=== PATIENT | female | born 1940 | race African-American/Black ===

== ENCOUNTER 2020-12-01 11:42 | Inpatient (IN) ==
[2020-12-01] MEDS ORDERED: NALOXONE 0.4 MG/ML VIAL ONE (12:04)
[2020-12-01] MEDS ORDERED: NALOXONE 0.4 MG/ML VIAL IV STA (12:04)
[2020-12-01 12:12] LABS: Basophils % 0.4 % (0.0-0.8); Eosinophils % 0.6 % (0.00-10.9); Hematocrit 40.4 VOL% (35.7-47.0); Hemoglobin 12.9 GM/DL (12.0-16.0); Immature Granulocytes % 0.4 %; Immature Granulocytes Absolute 0.03 #; Lymphocytes # 1.7 10*3/uL (1.4-4.0); Mean Corpuscular HGB Conc 31.9 GM/DL (32-36); Mean Corpuscular Volume 95.7 FL (87-102); Mean Platelet Volume 11.7 FL (9.6-12.0); Monocytes % 17.9 % (1.7-12.7); Neutrophils % 56.7 % (38.7-73.9); Platelet Count 113 T/CUMM (130-400); Red Blood Count 4.22 MC/CUMM (3.8-5.5); Red Cell Distribution Width 13.4 % (9.3-17.3); White Blood Count 7.3 T/CUMM (4-12)
[2020-12-01 12:35] LABS: Bacteria,Urine Occasional /HPF (Few); Bilirubin,Urine Negative (Negative); Blood, Urine Negative (Negative); Glucose,Urine (UA) Negative (Negative); Ketones,Urine Negative (Negative); Mucus,Urine Occasional /LPF (Occasional); Nitrite,Urine Negative (Negative); Protein,Urine 30 MG/DL; RBC,Urine 2 /HPF (0-4); Squamous Epithelial Cell,Urine Occasional /HPF (0-10); Urine Appearance CLEAR (Clear); Urine Color Yellow (Yellow); Urine Specific Gravity 1.011 (1.001-1.035); WBC,Urine <1 /HPF (0-6)
[2020-12-01 12:36] LABS: Eosinophils 2 % (0-10); Lymphocytes 17 % (20-55); Segmented Neutrophils 67 % (50-85); Total Cells Counted 100
[2020-12-01 12:37] LABS: Platelet Estimate Adequate
[2020-12-01 12:42] LABS: Barbiturates Screen,Urine Negative (Negative); Benzodiazepines Screen,Urine Negative (Negative); Cannabinoid Screen,Urine Negative (Negative); Opiate Screen,Urine Negative (Negative); Phencyclidine Screen,Urine Negative (Negative)
[2020-12-01 12:45] LABS: Alanine Aminotransferase 20 U/L (13-56); Alkaline Phosphatase 96 U/L (45-117); Aspartate Amino Transferase 30 U/L (0-37); Blood Urea Nitrogen 20 MG/DL (7-18); Calcium 10.4 MG/DL (8.5-10.1); Estimated Glom Filtration Rate 51 ML/MIN; Glucose 119 MG/DL (74-106); Total Protein 7.7 G/DL (6.4-8.3)
[2020-12-01] MEDS ORDERED: DEXTROSE 50% 25 GM/50 ML VIAL IV PRN (14:32)
[2020-12-01] MEDS ORDERED: ONDANSETRON 4 MG/2 ML VIAL IV PRN (14:32)
[2020-12-01] MEDS ORDERED: ACETAMINOPHEN 325 MG TABLET PO PRN (14:32)
[2020-12-01] MEDS ORDERED: GLUCAGON 1 MG VIAL IM PRN (14:32)
[2020-12-01 14:55] LABS: Ferritin 342.9 ng/ml (8-252)
[2020-12-01] MEDS ORDERED: hydrALAZINE 20 MG/1 ML VIAL IV PRN (16:03)
[2020-12-01] MEDS: HEPARIN 5,000 UNIT/1 ML VIAL SUBCUT SCH (19:03)
[2020-12-01] MEDS: DEXAMETHASONE 4 MG/1 ML VIAL IV SCH (19:06)
[2020-12-01] MEDS: hydrALAZINE 25 MG TABLET PO SCH ×2 (19:06→21:54)
[2020-12-01] MEDS: MEMANTINE 10 MG TABLET PO SCH (21:53)
[2020-12-01] MEDS: carvediloL 25 MG TABLET PO SCH (21:54)
[2020-12-01] MEDS: ATORVASTATIN 10 MG TABLET PO SCH (21:54)
[2020-12-01] MEDS: DONEPEZIL 10 MG TABLET PO SCH (21:54)
[2020-12-02 04:54] LABS: Basophils % 0.2 % (0.0-0.8); Hemoglobin 13.1 GM/DL (12.0-16.0); Immature Granulocytes % 0.4 %; Immature Granulocytes Absolute 0.02 #; Lymphocytes # 1.1 10*3/uL (1.4-4.0); Lymphocytes % 22.4 % (21.3-54.2); Mean Corpuscular HGB Conc 31.2 GM/DL (32-36); Mean Corpuscular Volume 96.6 FL (87-102); Mean Platelet Volume 11.3 FL (9.6-12.0); Monocytes % 4.8 % (1.7-12.7); Neutrophils % 72.2 % (38.7-73.9); Platelet Count 113 T/CUMM (130-400); Red Blood Count 4.35 MC/CUMM (3.8-5.5); Red Cell Distribution Width 13.2 % (9.3-17.3); White Blood Count 4.8 T/CUMM (4-12)
[2020-12-02 05:32] LABS: Alanine Aminotransferase 21 U/L (13-56); Albumin 3.4 G/DL (3.4-5.0); Alkaline Phosphatase 89 U/L (45-117); Aspartate Amino Transferase 28 U/L (0-37); Bilirubin,Total < 0.39 MG/DL (0.2-1.0); Blood Urea Nitrogen 19 MG/DL (7-18); Calcium 10.4 MG/DL (8.5-10.1); Estimated Glom Filtration Rate 60 ML/MIN; Ferritin 172.8 ng/ml (8-252); Glucose 154 MG/DL (74-106); Osmolality,Calculated 287.1 MOS/KG (273-304); Thyroid Stimulating Hormone 0.435 uIU/ml (0.358-3.74); Total Protein 7.4 G/DL (6.4-8.3)
[2020-12-02] MEDS: HEPARIN 5,000 UNIT/1 ML VIAL SUBCUT SCH ×3 (06:42→22:13)
[2020-12-02] MEDS: INSULIN LISPRO 100 UNIT/ML SUBCUT SCH ×6 (07:45→20:43)
[2020-12-02] MEDS: PANTOPRAZOLE 40 MG TABLET PO SCH (10:19)
[2020-12-02] MEDS: CINACALCET 30 MG TABLET PO SCH (10:19)
[2020-12-02] MEDS: ASPIRIN EC 81 MG TABLET PO SCH (10:19)
[2020-12-02] MEDS: MEMANTINE 10 MG TABLET PO SCH ×2 (10:19→20:43)
[2020-12-02] MEDS: OXYBUTYNIN 5 MG TABLET PO SCH (10:19)
[2020-12-02] MEDS: DEXAMETHASONE 4 MG/1 ML VIAL IV SCH (10:19)
[2020-12-02] MEDS: TORSEMIDE 20 MG TABLET PO SCH (10:19)
[2020-12-02] MEDS: hydrALAZINE 25 MG TABLET PO SCH ×3 (10:24→20:43)
[2020-12-02] MEDS: carvediloL 25 MG TABLET PO SCH ×2 (10:24→20:43)
[2020-12-02] MEDS: LOSARTAN 50 MG TABLET PO SCH (10:25)
[2020-12-02] MEDS: amLODIPine 5 MG TABLET PO SCH (10:26)
[2020-12-02] MEDS: DONEPEZIL 10 MG TABLET PO SCH (20:43)
[2020-12-02] MEDS: ATORVASTATIN 10 MG TABLET PO SCH (20:43)
[2020-12-03 05:47] LABS: Alanine Aminotransferase 19 U/L (13-56); Albumin 3.1 G/DL (3.4-5.0); Alkaline Phosphatase 76 U/L (45-117); Aspartate Amino Transferase 24 U/L (0-37); Bilirubin,Total < 0.39 MG/DL (0.2-1.0); Blood Urea Nitrogen 35 MG/DL (7-18); Calcium 10.2 MG/DL (8.5-10.1); Estimated Glom Filtration Rate 47 ML/MIN; Glucose 152 MG/DL (74-106); Osmolality,Calculated 293.1 MOS/KG (273-304); Total Protein 6.9 G/DL (6.4-8.3)
[2020-12-03 05:58] LABS: Ferritin 209.2 ng/ml (8-252)
[2020-12-03 06:04] LABS: Hematocrit 39.5 VOL% (35.7-47.0); Hemoglobin 12.8 GM/DL (12.0-16.0); Immature Granulocytes % 0.3 %; Immature Granulocytes Absolute 0.02 #; Lymphocytes # 1.4 10*3/uL (1.4-4.0); Lymphocytes % 23.2 % (21.3-54.2); Mean Corpuscular HGB Conc 32.4 GM/DL (32-36); Mean Corpuscular Volume 93.4 FL (87-102); Monocytes % 14.4 % (1.7-12.7); Neutrophils % 62.1 % (38.7-73.9); Platelet Count 106 T/CUMM (130-400); Red Blood Count 4.23 MC/CUMM (3.8-5.5); White Blood Count 5.9 T/CUMM (4-12)
[2020-12-03] MEDS: HEPARIN 5,000 UNIT/1 ML VIAL SUBCUT SCH ×3 (06:37→21:23)
[2020-12-03] MEDS ORDERED: GLUCAGON 1 MG VIAL IM PRN (07:44)
[2020-12-03] MEDS ORDERED: DEXTROSE 50% 25 GM/50 ML VIAL IV PRN (07:44)
[2020-12-03] MEDS: TORSEMIDE 20 MG TABLET PO SCH (08:11)
[2020-12-03] MEDS: LOSARTAN 50 MG TABLET PO SCH (08:11)
[2020-12-03] MEDS: DEXAMETHASONE 4 MG/1 ML VIAL IV SCH (08:11)
[2020-12-03] MEDS: hydrALAZINE 25 MG TABLET PO SCH ×3 (08:11→21:17)
[2020-12-03] MEDS: carvediloL 25 MG TABLET PO SCH ×2 (08:12→21:17)
[2020-12-03] MEDS: ASPIRIN EC 81 MG TABLET PO SCH (08:12)
[2020-12-03] MEDS: OXYBUTYNIN 5 MG TABLET PO SCH (08:12)
[2020-12-03] MEDS: PANTOPRAZOLE 40 MG TABLET PO SCH (08:12)
[2020-12-03] MEDS: CINACALCET 30 MG TABLET PO SCH (08:12)
[2020-12-03] MEDS: MEMANTINE 10 MG TABLET PO SCH ×2 (08:12→21:17)
[2020-12-03] MEDS: amLODIPine 5 MG TABLET PO SCH (08:12)
[2020-12-03] MEDS: INSULIN LISPRO 100 UNIT/ML SUBCUT SCH ×4 (08:12→21:17)
[2020-12-03] MEDS: CEFEPIME 1,000 MG in SODIUM CHLORIDE 0.9% 100 ML IV SCH ×2 (14:16→21:16)
[2020-12-03] MEDS: DONEPEZIL 10 MG TABLET PO SCH (21:17)
[2020-12-03] MEDS: ATORVASTATIN 10 MG TABLET PO SCH (21:17)
[2020-12-04] MEDS: CEFEPIME 1,000 MG in SODIUM CHLORIDE 0.9% 100 ML IV SCH ×3 (05:08→21:20)
[2020-12-04] MEDS: HEPARIN 5,000 UNIT/1 ML VIAL SUBCUT SCH ×3 (05:08→21:01)
[2020-12-04 07:06] LABS: Basophils % 0.1 % (0.0-0.8); Hematocrit 42.2 VOL% (35.7-47.0); Hemoglobin 13.2 GM/DL (12.0-16.0); Immature Granulocytes % 0.3 %; Immature Granulocytes Absolute 0.02 #; Lymphocytes # 1.1 10*3/uL (1.4-4.0); Lymphocytes % 14.9 % (21.3-54.2); Mean Corpuscular HGB Conc 31.3 GM/DL (32-36); Mean Corpuscular Volume 96.6 FL (87-102); Monocytes % 9.4 % (1.7-12.7); Neutrophils % 75.3 % (38.7-73.9); Platelet Count 101 T/CUMM (130-400); Red Blood Count 4.37 MC/CUMM (3.8-5.5); Red Cell Distribution Width 13.1 % (9.3-17.3); White Blood Count 7.5 T/CUMM (4-12)
[2020-12-04 07:28] LABS: Calcium 10.4 MG/DL (8.5-10.1); Osmolality,Calculated 295.8 MOS/KG (273-304)
[2020-12-04] MEDS: INSULIN LISPRO 100 UNIT/ML SUBCUT SCH ×4 (08:02→20:59)
[2020-12-04] MEDS: DEXAMETHASONE 4 MG/1 ML VIAL IV SCH (08:56)
[2020-12-04] MEDS: OXYBUTYNIN 5 MG TABLET PO SCH (08:56)
[2020-12-04] MEDS: hydrALAZINE 25 MG TABLET PO SCH ×3 (08:56→20:58)
[2020-12-04] MEDS: PANTOPRAZOLE 40 MG TABLET PO SCH (08:56)
[2020-12-04] MEDS: carvediloL 25 MG TABLET PO SCH ×2 (08:56→20:58)
[2020-12-04] MEDS: amLODIPine 5 MG TABLET PO SCH (08:56)
[2020-12-04] MEDS: MEMANTINE 10 MG TABLET PO SCH ×2 (08:56→20:58)
[2020-12-04] MEDS: TORSEMIDE 20 MG TABLET PO SCH (08:56)
[2020-12-04] MEDS: ASPIRIN EC 81 MG TABLET PO SCH (08:56)
[2020-12-04] MEDS: LOSARTAN 50 MG TABLET PO SCH (08:56)
[2020-12-04] MEDS: CINACALCET 30 MG TABLET PO SCH (08:56)
[2020-12-04] MEDS: DONEPEZIL 10 MG TABLET PO SCH (20:58)
[2020-12-04] MEDS: ATORVASTATIN 10 MG TABLET PO SCH (20:58)
[2020-12-05 04:11] LABS: Basophils % 0.2 % (0.0-0.8); Hematocrit 39.7 VOL% (35.7-47.0); Hemoglobin 12.3 GM/DL (12.0-16.0); Immature Granulocytes % 0.5 %; Immature Granulocytes Absolute 0.03 #; Lymphocytes # 0.9 10*3/uL (1.4-4.0); Lymphocytes % 13.7 % (21.3-54.2); Mean Corpuscular Volume 96.1 FL (87-102); Mean Platelet Volume 11.7 FL (9.6-12.0); Monocytes % 9.2 % (1.7-12.7); Neutrophils % 76.4 % (38.7-73.9); Platelet Count 89 T/CUMM (130-400); Red Blood Count 4.13 MC/CUMM (3.8-5.5); White Blood Count 6.4 T/CUMM (4-12)
[2020-12-05 04:55] LABS: Calcium 10.5 MG/DL (8.5-10.1); Osmolality,Calculated 299.8 MOS/KG (273-304)
[2020-12-05] MEDS: HEPARIN 5,000 UNIT/1 ML VIAL SUBCUT SCH ×3 (05:43→22:40)
[2020-12-05] MEDS: CEFEPIME 1,000 MG in SODIUM CHLORIDE 0.9% 100 ML IV SCH ×3 (05:43→22:40)
[2020-12-05] MEDS: INSULIN LISPRO 100 UNIT/ML SUBCUT SCH ×4 (08:00→21:30)
[2020-12-05] MEDS: hydrALAZINE 25 MG TABLET PO SCH ×3 (08:22→21:30)
[2020-12-05] MEDS: carvediloL 25 MG TABLET PO SCH ×2 (08:22→21:31)
[2020-12-05] MEDS: LOSARTAN 50 MG TABLET PO SCH (08:22)
[2020-12-05] MEDS: DEXAMETHASONE 4 MG/1 ML VIAL IV SCH (08:22)
[2020-12-05] MEDS: ASPIRIN EC 81 MG TABLET PO SCH (08:22)
[2020-12-05] MEDS: TORSEMIDE 20 MG TABLET PO SCH (08:23)
[2020-12-05] MEDS: PANTOPRAZOLE 40 MG TABLET PO SCH (08:23)
[2020-12-05] MEDS: OXYBUTYNIN 5 MG TABLET PO SCH (08:23)
[2020-12-05] MEDS: CINACALCET 30 MG TABLET PO SCH (08:23)
[2020-12-05] MEDS: MEMANTINE 10 MG TABLET PO SCH ×2 (08:23→21:31)
[2020-12-05] MEDS: amLODIPine 5 MG TABLET PO SCH (08:23)
[2020-12-05] MEDS: ATORVASTATIN 10 MG TABLET PO SCH (21:31)
[2020-12-05] MEDS: DONEPEZIL 10 MG TABLET PO SCH (21:31)
[2020-12-06] MEDS: CEFEPIME 1,000 MG in SODIUM CHLORIDE 0.9% 100 ML IV SCH ×2 (05:51→16:16)
[2020-12-06] MEDS: HEPARIN 5,000 UNIT/1 ML VIAL SUBCUT SCH ×2 (05:51→16:16)
[2020-12-06 06:23] LABS: Basophils % 0.1 % (0.0-0.8); Hematocrit 41.3 VOL% (35.7-47.0); Immature Granulocytes % 0.5 %; Immature Granulocytes Absolute 0.04 #; Lymphocytes % 13.4 % (21.3-54.2); Mean Corpuscular HGB Conc 31.5 GM/DL (32-36); Mean Corpuscular Volume 94.3 FL (87-102); Mean Platelet Volume 11.9 FL (9.6-12.0); Monocytes % 9.3 % (1.7-12.7); Neutrophils % 76.7 % (38.7-73.9); Platelet Count 62 T/CUMM (130-400); Red Blood Count 4.38 MC/CUMM (3.8-5.5); White Blood Count 7.3 T/CUMM (4-12)
[2020-12-06 06:47] LABS: Calcium 10.6 MG/DL (8.5-10.1); Osmolality,Calculated 298.1 MOS/KG (273-304)
[2020-12-06 08:38] LABS: Macrocytosis Slight; Platelet Estimate Decreased; Toxic Granulation 1+
[2020-12-06] MEDS: INSULIN LISPRO 100 UNIT/ML SUBCUT SCH ×2 (08:45→11:45)
[2020-12-06] MEDS: MEMANTINE 10 MG TABLET PO SCH (09:50)
[2020-12-06] MEDS: ASPIRIN EC 81 MG TABLET PO SCH (09:50)
[2020-12-06] MEDS: OXYBUTYNIN 5 MG TABLET PO SCH (09:50)
[2020-12-06] MEDS: PANTOPRAZOLE 40 MG TABLET PO SCH (09:50)
[2020-12-06] MEDS: amLODIPine 5 MG TABLET PO SCH (09:50)
[2020-12-06] MEDS: DEXAMETHASONE 4 MG/1 ML VIAL IV SCH (09:50)
[2020-12-06] MEDS: carvediloL 25 MG TABLET PO SCH (09:50)
[2020-12-06] MEDS: CINACALCET 30 MG TABLET PO SCH (09:50)
[2020-12-06] MEDS: hydrALAZINE 25 MG TABLET PO SCH ×2 (09:50→16:16)
[2020-12-06 11:23] VITALS: BP 139/72
== END 2020-12-06 17:00 | disposition home or self-care (01) | DRG 177 ==
LOC: EDUNIT# → EDBD → N.ED 11:42 → N.EDINP 14:27 → SUATTDRO 14:27 → N.2E 12-02 17:54
PROVIDERS: ADMIT Internal Medicine; ATTEND Internal Medicine

== ENCOUNTER 2020-12-09 12:01 | Inpatient (IN) ==
[2020-12-09 12:50] LABS: Basophils % 0.2 % (0.0-0.8); Hemoglobin 13.2 GM/DL (12.0-16.0); Immature Granulocytes Absolute 0.13 #; Lymphocytes # 0.8 10*3/uL (1.4-4.0); Lymphocytes % 6.5 % (21.3-54.2); Mean Corpuscular Volume 99.5 FL (87-102); Monocytes % 4.1 % (1.7-12.7); Neutrophils % 88.2 % (38.7-73.9); Platelet Count 120 T/CUMM (130-400); Red Blood Count 4.42 MC/CUMM (3.8-5.5); Red Cell Distribution Width 13.1 % (9.3-17.3); White Blood Count 12.6 T/CUMM (4-12)
[2020-12-09 13:08] LABS: Alanine Aminotransferase 24 U/L (13-56); Albumin 3.1 G/DL (3.4-5.0); Alkaline Phosphatase 66 U/L (45-117); Aspartate Amino Transferase 18 U/L (0-37); Blood Urea Nitrogen 49 MG/DL (7-18); Calcium 12.6 MG/DL (8.5-10.1); Carbon Dioxide 30 MMOL/L (21-32); Estimated Glom Filtration Rate 35 ML/MIN; Glucose 252 MG/DL (74-106); Potassium 4.4 MMOL/L (3.5-5.1); Sodium 150 MMOL/L (136-145); Total Protein 7.8 G/DL (6.4-8.3); Troponin I 0.036 NG/ML (0.00-0.045)
[2020-12-09 15:16] LABS: Bacteria,Urine Occasional /HPF (Few); Bilirubin,Urine Negative (Negative); Blood, Urine Negative (Negative); Glucose,Urine (UA) Negative (Negative); Hyaline Casts,Urine 30 /LPF (0-3); Ketones,Urine Negative (Negative); Mucus,Urine Occasional /LPF (Occasional); Nitrite,Urine Negative (Negative); Protein,Urine Negative; Squamous Epithelial Cell,Urine Occasional /HPF (0-10); Urine Appearance CLEAR (Clear); Urine Color Yellow (Yellow); Urine Specific Gravity 1.009 (1.001-1.035); Urine Urobilinogen < 2.0 EU/DL (0.2-1.0); WBC,Urine <1 /HPF (0-6)
[2020-12-09] MEDS ORDERED: FUROSEMIDE 40 MG/4 ML VIAL IV STA (15:20)
[2020-12-09] MEDS ORDERED: TUBERCULIN SKIN TEST 0.1 ML SYRINGE INTRADERM ONE (15:22)
[2020-12-09] MEDS ORDERED: AZITHROMYCIN INJ 500 MG in SODIUM CHLORIDE 0.9% 250 ML IV STA (15:27)
[2020-12-09] MEDS ORDERED: ACETAMINOPHEN 500 MG TABLET PO STA (15:27)
[2020-12-09] MEDS ORDERED: SIMETHICONE CHEW 125 MG TABLET PO PRN (15:46)
[2020-12-09] MEDS ORDERED: ACETAMINOPHEN 325 MG TABLET PO PRN (15:46)
[2020-12-09] MEDS ORDERED: BISACODYL 5 MG TABLET PO PRN (15:46)
[2020-12-09] MEDS ORDERED: ONDANSETRON 4 MG/2 ML VIAL IV PRN (15:46)
[2020-12-09] MEDS ORDERED: guaiFENesin/DM ER 600-30 MG TABLET PO PRN (15:46)
[2020-12-09] MEDS ORDERED: GLUCAGON 1 MG VIAL IM PRN ×2 (15:46)
[2020-12-09] MEDS ORDERED: ZALEPLON 5 MG CAPSULE PO PRN (15:46)
[2020-12-09] MEDS ORDERED: ALUMINUM/MAGNES/SIMETH MAX STR 30 ML UDCUP PO PRN (15:46)
[2020-12-09] MEDS ORDERED: hydrALAZINE 20 MG/1 ML VIAL IV PRN (15:46)
[2020-12-09] MEDS ORDERED: diphenhydrAMINE CAP 25 MG CAPSULE PO PRN (15:46)
[2020-12-09] MEDS ORDERED: DEXTROSE 50% 25 GM/50 ML VIAL IV PRN ×2 (15:46)
[2020-12-09] MEDS ORDERED: DOCUSATE SODIUM 100 MG CAPSULE PO PRN (15:46)
[2020-12-09] MEDS ORDERED: LACTULOSE 20 GM/30 ML UDCUP PO PRN (15:46)
[2020-12-09] MEDS: ENOXAPARIN 40 MG/0.4 ML SYRINGE SUBCUT SCH (18:26)
[2020-12-09] MEDS: INSULIN REGULAR 100 UNIT/ML SUBCUT SCH ×2 (19:24→22:08)
[2020-12-09] MEDS: traZODone 50 MG TABLET PO SCH (22:07)
[2020-12-09] MEDS: ATORVASTATIN 10 MG TABLET PO SCH (22:07)
[2020-12-09] MEDS: risperiDONE 0.5 MG TABLET PO SCH (22:07)
[2020-12-09] MEDS: ASCORBIC ACID 500 MG TABLET PO SCH (22:08)
[2020-12-09] MEDS: MEMANTINE 10 MG TABLET PO SCH (22:08)
[2020-12-09] MEDS: carvediloL 25 MG TABLET PO SCH (22:08)
[2020-12-10 06:32] LABS: Bilirubin,Total 0.8 MG/DL (0.2-1.0); Calcium 13.4 MG/DL (8.5-10.1); Osmolality,Calculated 328.3 MOS/KG (273-304); Potassium 3.7 MMOL/L (3.5-5.1)
[2020-12-10 06:35] LABS: Ferritin 558.5 ng/ml (8-252)
[2020-12-10 06:41] LABS: Basophils % 0.2 % (0.0-0.8); Hematocrit 45.4 VOL% (35.7-47.0); Immature Granulocytes % 1.1 %; Immature Granulocytes Absolute 0.17 #; Lymphocytes # 1.3 10*3/uL (1.4-4.0); Lymphocytes % 8.6 % (21.3-54.2); Mean Corpuscular Volume 99.6 FL (87-102); Mean Platelet Volume 13.6 FL (9.6-12.0); Monocytes % 4.6 % (1.7-12.7); Neutrophils % 85.5 % (38.7-73.9); Platelet Count 116 T/CUMM (130-400); Red Blood Count 4.56 MC/CUMM (3.8-5.5); Red Cell Distribution Width 13.3 % (9.3-17.3); White Blood Count 15.4 T/CUMM (4-12)
[2020-12-10 06:42] LABS: Hemoglobin 13.6 GM/DL (12.0-16.0)
[2020-12-10] MEDS ORDERED: DEXAMETHASONE 6 MG PO SCH (09:00)
[2020-12-10] MEDS ORDERED: TORSEMIDE 20 MG TABLET PO SCH (09:00)
[2020-12-10] MEDS: INSULIN GLARGINE 100 UNIT/ML SUBCUT SCH (09:14)
[2020-12-10] MEDS: INSULIN REGULAR 100 UNIT/ML SUBCUT SCH ×4 (09:14→20:49)
[2020-12-10] MEDS: ASCORBIC ACID 500 MG TABLET PO SCH ×2 (09:15→20:49)
[2020-12-10] MEDS: DEXAMETHASONE 4 MG/1 ML VIAL IV SCH (09:15)
[2020-12-10] MEDS: carvediloL 25 MG TABLET PO SCH ×2 (09:15→20:50)
[2020-12-10] MEDS: PANTOPRAZOLE 40 MG TABLET PO SCH (09:16)
[2020-12-10] MEDS: VENLAFAXINE XR 75 MG CAPSULE PO SCH (09:16)
[2020-12-10] MEDS: POTASSIUM CHLORIDE 10 MEQ TABLET PO SCH (09:16)
[2020-12-10] MEDS: CINACALCET 30 MG TABLET PO SCH (09:16)
[2020-12-10] MEDS: OXYBUTYNIN 5 MG TABLET PO SCH (09:16)
[2020-12-10] MEDS: amLODIPine 5 MG TABLET PO SCH (09:16)
[2020-12-10] MEDS: DONEPEZIL 10 MG TABLET PO SCH (09:16)
[2020-12-10] MEDS: ZINC GLUCONATE 50 MG TABLET PO SCH (09:16)
[2020-12-10] MEDS: ASPIRIN EC 81 MG TABLET PO SCH (09:16)
[2020-12-10] MEDS: MEMANTINE 10 MG TABLET PO SCH ×2 (09:17→20:50)
[2020-12-10] MEDS: SODIUM CHLORIDE 0.45% 1,000 ML IV SCH ×2 (09:17→20:55)
[2020-12-10] MEDS: IRON (CARBONYL)/VIT C/B12/FA TABLET PO SCH (10:27)
[2020-12-10] MEDS: AZITHROMYCIN INJ 500 MG in SODIUM CHLORIDE 0.9% 250 ML IV SCH (10:34)
[2020-12-10] MEDS: ENOXAPARIN 40 MG/0.4 ML SYRINGE SUBCUT SCH (17:37)
[2020-12-10] MEDS: risperiDONE 0.5 MG TABLET PO SCH (20:49)
[2020-12-10] MEDS: traZODone 50 MG TABLET PO SCH (20:50)
[2020-12-10] MEDS: ATORVASTATIN 10 MG TABLET PO SCH (20:50)
[2020-12-11 05:04] LABS: Allen Test Positive
[2020-12-11 05:08] LABS: ABG HCO3 30.7 MMOL/L (20-26); ABG Oxygen Saturation 91.1 % (95-100); ABG PCO2 54.9 MM HG (35-48); ABG PH 7.395 (7.35-7.45); ABG PO2 64.5 MM HG (80-95); ABG TCO2 29.8 MMOL/L (23-27)
[2020-12-11 06:13] LABS: Basophils % 0.2 % (0.0-0.8); Hematocrit 42.4 VOL% (35.7-47.0); Hemoglobin 12.8 GM/DL (12.0-16.0); Immature Granulocytes Absolute 0.12 #; Lymphocytes # 1.1 10*3/uL (1.4-4.0); Lymphocytes % 8.5 % (21.3-54.2); Mean Corpuscular HGB Conc 30.2 GM/DL (32-36); Mean Corpuscular Volume 100.7 FL (87-102); Mean Platelet Volume 13.2 FL (9.6-12.0); Monocytes % 5.5 % (1.7-12.7); Neutrophils % 84.8 % (38.7-73.9); Osmolality,Calculated 317.9 MOS/KG (273-304); Platelet Count 99 T/CUMM (130-400); Potassium 4.3 MMOL/L (3.5-5.1); Red Blood Count 4.21 MC/CUMM (3.8-5.5); Red Cell Distribution Width 13.3 % (9.3-17.3); White Blood Count 12.4 T/CUMM (4-12)
[2020-12-11 06:17] LABS: Albumin 2.6 G/DL (3.4-5.0); Bilirubin,Total 0.7 MG/DL (0.2-1.0); Calcium 12.9 MG/DL (8.5-10.1); Osmolality,Calculated 326.3 MOS/KG (273-304); Potassium 4.3 MMOL/L (3.5-5.1); Total Protein 7.1 G/DL (6.4-8.3)
[2020-12-11 06:18] LABS: Ferritin 552.1 ng/ml (8-252)
[2020-12-11 06:30] LABS: Hypochromasia 1+; Microcytosis 1+; Ovalocytes Slight; Platelet Estimate Decreased
[2020-12-11] MEDS: cefTRIAXone 1,000 MG in SYRINGE 1 EACH IV SCH (08:51)
[2020-12-11] MEDS: INSULIN REGULAR 100 UNIT/ML SUBCUT SCH ×4 (08:52→21:55)
[2020-12-11] MEDS: ZINC GLUCONATE 50 MG TABLET PO SCH (08:53)
[2020-12-11] MEDS: CINACALCET 30 MG TABLET PO SCH (08:53)
[2020-12-11] MEDS: VENLAFAXINE XR 75 MG CAPSULE PO SCH (08:53)
[2020-12-11] MEDS: ASCORBIC ACID 500 MG TABLET PO SCH ×2 (08:53→21:56)
[2020-12-11] MEDS: amLODIPine 5 MG TABLET PO SCH (08:53)
[2020-12-11] MEDS: MEMANTINE 10 MG TABLET PO SCH ×2 (08:53→21:56)
[2020-12-11] MEDS: ASPIRIN EC 81 MG TABLET PO SCH (08:53)
[2020-12-11] MEDS: INSULIN GLARGINE 100 UNIT/ML SUBCUT SCH (08:54)
[2020-12-11] MEDS: DEXAMETHASONE 4 MG/1 ML VIAL IV SCH (08:54)
[2020-12-11] MEDS: carvediloL 25 MG TABLET PO SCH ×2 (08:54→21:56)
[2020-12-11] MEDS: IRON (CARBONYL)/VIT C/B12/FA TABLET PO SCH (08:54)
[2020-12-11] MEDS: OXYBUTYNIN 5 MG TABLET PO SCH (08:54)
[2020-12-11] MEDS: PANTOPRAZOLE 40 MG TABLET PO SCH (08:54)
[2020-12-11] MEDS: POTASSIUM CHLORIDE 10 MEQ TABLET PO SCH (08:54)
[2020-12-11] MEDS: DONEPEZIL 10 MG TABLET PO SCH (08:54)
[2020-12-11] MEDS: ENOXAPARIN 40 MG/0.4 ML SYRINGE SUBCUT SCH ×2 (08:58→21:56)
[2020-12-11] MEDS: AZITHROMYCIN INJ 500 MG in SODIUM CHLORIDE 0.9% 250 ML IV SCH (09:01)
[2020-12-11] MEDS: SODIUM CHLORIDE 0.45% 1,000 ML IV SCH ×2 (10:14→23:52)
[2020-12-11] MEDS: ATORVASTATIN 10 MG TABLET PO SCH (21:56)
[2020-12-11] MEDS: risperiDONE 0.5 MG TABLET PO SCH (21:56)
[2020-12-11] MEDS: traZODone 50 MG TABLET PO SCH (21:56)
[2020-12-12 05:31] LABS: Basophils % 0.3 % (0.0-0.8); Hematocrit 40.2 VOL% (35.7-47.0); Hemoglobin 12.1 GM/DL (12.0-16.0); Immature Granulocytes % 1.4 %; Immature Granulocytes Absolute 0.17 #; Lymphocytes # 1.1 10*3/uL (1.4-4.0); Lymphocytes % 9.5 % (21.3-54.2); Mean Corpuscular HGB Conc 30.1 GM/DL (32-36); Mean Corpuscular Volume 99.8 FL (87-102); Mean Platelet Volume 13.2 FL (9.6-12.0); Monocytes % 4.9 % (1.7-12.7); Neutrophils % 83.9 % (38.7-73.9); Platelet Count 102 T/CUMM (130-400); Red Blood Count 4.03 MC/CUMM (3.8-5.5); Red Cell Distribution Width 12.9 % (9.3-17.3); White Blood Count 11.9 T/CUMM (4-12)
[2020-12-12 05:47] LABS: Calcium 12.2 MG/DL (8.5-10.1); Osmolality,Calculated 311.1 MOS/KG (273-304); Potassium 4.4 MMOL/L (3.5-5.1)
[2020-12-12 05:50] LABS: Albumin 2.4 G/DL (3.4-5.0); Bilirubin,Total 0.4 MG/DL (0.2-1.0); Calcium 12.4 MG/DL (8.5-10.1); Osmolality,Calculated 311.1 MOS/KG (273-304); Potassium 4.4 MMOL/L (3.5-5.1); Total Protein 6.7 G/DL (6.4-8.3)
[2020-12-12 06:01] LABS: Ferritin 552.9 ng/ml (8-252)
[2020-12-12 06:28] LABS: Hypochromasia 1+; Microcytosis 1+; Ovalocytes Slight
[2020-12-12 06:29] LABS: Platelet Estimate Decreased
[2020-12-12] MEDS: INSULIN REGULAR 100 UNIT/ML SUBCUT SCH ×4 (08:08→21:56)
[2020-12-12] MEDS: VENLAFAXINE XR 75 MG CAPSULE PO SCH (08:10)
[2020-12-12] MEDS: IRON (CARBONYL)/VIT C/B12/FA TABLET PO SCH (08:10)
[2020-12-12] MEDS: MEMANTINE 10 MG TABLET PO SCH ×2 (08:10→21:56)
[2020-12-12] MEDS: OXYBUTYNIN 5 MG TABLET PO SCH (08:10)
[2020-12-12] MEDS: POTASSIUM CHLORIDE 10 MEQ TABLET PO SCH (08:10)
[2020-12-12] MEDS: carvediloL 25 MG TABLET PO SCH ×2 (08:11→21:56)
[2020-12-12] MEDS: PANTOPRAZOLE 40 MG TABLET PO SCH (08:11)
[2020-12-12] MEDS: CINACALCET 30 MG TABLET PO SCH (08:11)
[2020-12-12] MEDS: ZINC GLUCONATE 50 MG TABLET PO SCH (08:11)
[2020-12-12] MEDS: amLODIPine 5 MG TABLET PO SCH (08:11)
[2020-12-12] MEDS: ASCORBIC ACID 500 MG TABLET PO SCH ×2 (08:11→21:56)
[2020-12-12] MEDS: DONEPEZIL 10 MG TABLET PO SCH (08:11)
[2020-12-12] MEDS: ASPIRIN EC 81 MG TABLET PO SCH (08:11)
[2020-12-12] MEDS: cefTRIAXone 1,000 MG in SYRINGE 1 EACH IV SCH (08:12)
[2020-12-12] MEDS: ENOXAPARIN 40 MG/0.4 ML SYRINGE SUBCUT SCH ×2 (08:12→21:56)
[2020-12-12] MEDS: DEXAMETHASONE 4 MG/1 ML VIAL IV SCH (08:12)
[2020-12-12] MEDS: INSULIN GLARGINE 100 UNIT/ML SUBCUT SCH (08:13)
[2020-12-12 08:51] LABS: ABG HCO3 27.8 MMOL/L (20-26); ABG Oxygen Saturation 90.4 % (95-100); ABG PCO2 55.4 MM HG (35-48); ABG PH 7.355 (7.35-7.45); ABG PO2 63.9 MM HG (80-95); ABG TCO2 27.7 MMOL/L (23-27)
[2020-12-12] MEDS: AZITHROMYCIN INJ 500 MG in SODIUM CHLORIDE 0.9% 250 ML IV SCH (09:00)
[2020-12-12] MEDS: SODIUM CHLORIDE 0.45% 1,000 ML IV SCH (13:12)
[2020-12-12] MEDS: traZODone 50 MG TABLET PO SCH (21:56)
[2020-12-12] MEDS: ATORVASTATIN 10 MG TABLET PO SCH (21:56)
[2020-12-12] MEDS: risperiDONE 0.5 MG TABLET PO SCH (21:56)
[2020-12-13] MEDS: SODIUM CHLORIDE 0.45% 1,000 ML IV SCH ×3 (02:00→16:31)
[2020-12-13 05:42] LABS: Basophils % 0.2 % (0.0-0.8); Hematocrit 39.5 VOL% (35.7-47.0); Immature Granulocytes % 1.1 %; Immature Granulocytes Absolute 0.12 #; Lymphocytes # 0.9 10*3/uL (1.4-4.0); Lymphocytes % 7.7 % (21.3-54.2); Mean Corpuscular HGB Conc 30.4 GM/DL (32-36); Mean Corpuscular Volume 98.8 FL (87-102); Mean Platelet Volume 12.8 FL (9.6-12.0); Monocytes % 5.1 % (1.7-12.7); Neutrophils % 85.9 % (38.7-73.9); Platelet Count 106 T/CUMM (130-400); Red Cell Distribution Width 12.7 % (9.3-17.3); White Blood Count 11.1 T/CUMM (4-12)
[2020-12-13 05:53] LABS: Calcium 11.7 MG/DL (8.5-10.1); Osmolality,Calculated 306.3 MOS/KG (273-304); Potassium 4.8 MMOL/L (3.5-5.1)
[2020-12-13 05:59] LABS: Albumin 2.2 G/DL (3.4-5.0); Bilirubin,Total 0.7 MG/DL (0.2-1.0); Calcium 12.3 MG/DL (8.5-10.1); Osmolality,Calculated 304.4 MOS/KG (273-304); Potassium 4.5 MMOL/L (3.5-5.1); Total Protein 6.5 G/DL (6.4-8.3)
[2020-12-13 06:09] LABS: Ferritin 502.4 ng/ml (8-252)
[2020-12-13] MEDS: DEXAMETHASONE 4 MG/1 ML VIAL IV SCH (08:11)
[2020-12-13] MEDS: IRON (CARBONYL)/VIT C/B12/FA TABLET PO SCH (08:12)
[2020-12-13] MEDS: VENLAFAXINE XR 75 MG CAPSULE PO SCH (08:12)
[2020-12-13] MEDS: ENOXAPARIN 40 MG/0.4 ML SYRINGE SUBCUT SCH ×2 (08:12→22:12)
[2020-12-13] MEDS: cefTRIAXone 1,000 MG in SYRINGE 1 EACH IV SCH (08:12)
[2020-12-13] MEDS: DONEPEZIL 10 MG TABLET PO SCH (08:13)
[2020-12-13] MEDS: CINACALCET 30 MG TABLET PO SCH (08:13)
[2020-12-13] MEDS: PANTOPRAZOLE 40 MG TABLET PO SCH (08:13)
[2020-12-13] MEDS: ZINC GLUCONATE 50 MG TABLET PO SCH (08:13)
[2020-12-13] MEDS: OXYBUTYNIN 5 MG TABLET PO SCH (08:13)
[2020-12-13] MEDS: carvediloL 25 MG TABLET PO SCH ×2 (08:13→22:12)
[2020-12-13] MEDS: ASCORBIC ACID 500 MG TABLET PO SCH ×2 (08:13→22:12)
[2020-12-13] MEDS: ASPIRIN EC 81 MG TABLET PO SCH (08:13)
[2020-12-13] MEDS: POTASSIUM CHLORIDE 10 MEQ TABLET PO SCH (08:13)
[2020-12-13] MEDS: amLODIPine 5 MG TABLET PO SCH (08:13)
[2020-12-13] MEDS: INSULIN REGULAR 100 UNIT/ML SUBCUT SCH ×4 (08:14→22:12)
[2020-12-13] MEDS: AZITHROMYCIN INJ 500 MG in SODIUM CHLORIDE 0.9% 250 ML IV SCH (09:09)
[2020-12-13] MEDS: MEMANTINE 10 MG TABLET PO SCH ×2 (09:13→22:11)
[2020-12-13] MEDS: INSULIN GLARGINE 100 UNIT/ML SUBCUT SCH (09:13)
[2020-12-13 10:41] LABS: Parathyroid Hormone Intact 253.9 PG/ML (18.4-80.1)
[2020-12-13 10:51] LABS: ABG Base Excess 3.3 MMOL/L (-2.5-2.5); ABG HCO3 27.1 MMOL/L (20-26); ABG Oxygen Saturation 87.5 % (95-100); ABG PCO2 48.2 MM HG (35-48); ABG PH 7.388 (7.35-7.45); ABG PO2 55.2 MM HG (80-95)
[2020-12-13] MEDS: ATORVASTATIN 10 MG TABLET PO SCH (22:11)
[2020-12-13] MEDS: traZODone 50 MG TABLET PO SCH (22:11)
[2020-12-13] MEDS: risperiDONE 0.5 MG TABLET PO SCH (22:12)
[2020-12-14] MEDS: SODIUM CHLORIDE 0.45% 1,000 ML IV SCH ×2 (01:00→14:20)
[2020-12-14 04:09] LABS: ABG Base Excess 3.2 MMOL/L (-2.5-2.5); ABG HCO3 26.9 MMOL/L (20-26); ABG Oxygen Saturation 79.9 % (95-100); ABG PCO2 44.1 MM HG (35-48); ABG PH 7.414 (7.35-7.45); ABG PO2 45.8 MM HG (80-95); ABG TCO2 25.3 MMOL/L (23-27)
[2020-12-14 06:43] LABS: Albumin 2.2 G/DL (3.4-5.0); Bilirubin,Total 1.1 MG/DL (0.2-1.0); Calcium 12.2 MG/DL (8.5-10.1); Osmolality,Calculated 303.4 MOS/KG (273-304); Potassium 4.5 MMOL/L (3.5-5.1); Total Protein 6.5 G/DL (6.4-8.3)
[2020-12-14 07:13] LABS: Basophils % 0.2 % (0.0-0.8); Eosinophils % 0.1 % (0.00-10.9); Hematocrit 39.1 VOL% (35.7-47.0); Immature Granulocytes % 1.9 %; Immature Granulocytes Absolute 0.25 #; Lymphocytes # 1.1 10*3/uL (1.4-4.0); Lymphocytes % 8.3 % (21.3-54.2); Mean Corpuscular HGB Conc 30.7 GM/DL (32-36); Mean Corpuscular Volume 99.7 FL (87-102); Mean Platelet Volume 13.5 FL (9.6-12.0); Neutrophils % 84.5 % (38.7-73.9); Platelet Count 101 T/CUMM (130-400); Red Blood Count 3.92 MC/CUMM (3.8-5.5); Red Cell Distribution Width 12.8 % (9.3-17.3); White Blood Count 13.1 T/CUMM (4-12)
[2020-12-14 07:17] LABS: Hypochromasia 1+; Microcytosis 1+; Platelet Estimate Decreased
[2020-12-14] MEDS: DEXAMETHASONE 4 MG/1 ML VIAL IV SCH (09:29)
[2020-12-14] MEDS: INSULIN REGULAR 100 UNIT/ML SUBCUT SCH ×4 (09:31→21:25)
[2020-12-14] MEDS: cefTRIAXone 1,000 MG in SYRINGE 1 EACH IV SCH (09:31)
[2020-12-14] MEDS: IRON (CARBONYL)/VIT C/B12/FA TABLET PO SCH (09:33)
[2020-12-14] MEDS: ENOXAPARIN 40 MG/0.4 ML SYRINGE SUBCUT SCH ×2 (09:33→21:25)
[2020-12-14] MEDS: ZINC GLUCONATE 50 MG TABLET PO SCH (09:33)
[2020-12-14] MEDS: CINACALCET 30 MG TABLET PO SCH (09:33)
[2020-12-14] MEDS: ASPIRIN EC 81 MG TABLET PO SCH (09:33)
[2020-12-14] MEDS: PANTOPRAZOLE 40 MG TABLET PO SCH (09:34)
[2020-12-14] MEDS: VENLAFAXINE XR 75 MG CAPSULE PO SCH (09:34)
[2020-12-14] MEDS: POTASSIUM CHLORIDE 10 MEQ TABLET PO SCH (09:34)
[2020-12-14] MEDS: INSULIN GLARGINE 100 UNIT/ML SUBCUT SCH (09:35)
[2020-12-14] MEDS: carvediloL 25 MG TABLET PO SCH ×2 (09:36→21:25)
[2020-12-14] MEDS: MEMANTINE 10 MG TABLET PO SCH ×2 (09:36→21:25)
[2020-12-14] MEDS: DONEPEZIL 10 MG TABLET PO SCH (09:36)
[2020-12-14] MEDS: amLODIPine 5 MG TABLET PO SCH (09:36)
[2020-12-14] MEDS: ASCORBIC ACID 500 MG TABLET PO SCH ×2 (09:36→21:25)
[2020-12-14] MEDS: OXYBUTYNIN 5 MG TABLET PO SCH (09:59)
[2020-12-14] MEDS: CHOLECALCIFEROL 400 UNIT TABLET PO SCH (09:59)
[2020-12-14] MEDS: AZITHROMYCIN INJ 500 MG in SODIUM CHLORIDE 0.9% 250 ML IV SCH (09:59)
[2020-12-14] MEDS: risperiDONE 0.5 MG TABLET PO SCH (21:25)
[2020-12-14] MEDS: ATORVASTATIN 10 MG TABLET PO SCH (21:25)
[2020-12-14] MEDS: traZODone 50 MG TABLET PO SCH (21:25)
[2020-12-15 05:42] LABS: Albumin 2.2 G/DL (3.4-5.0); Bilirubin,Total 0.4 MG/DL (0.2-1.0); Calcium 12.4 MG/DL (8.5-10.1); Osmolality,Calculated 296.7 MOS/KG (273-304); Potassium 4.7 MMOL/L (3.5-5.1); Total Protein 6.6 G/DL (6.4-8.3)
[2020-12-15 05:55] LABS: Basophils % 0.3 % (0.0-0.8); Eosinophils # 0.1 10*3/uL (0.0-0.87); Eosinophils % 0.4 % (0.00-10.9); Hematocrit 39.2 VOL% (35.7-47.0); Hemoglobin 12.2 GM/DL (12.0-16.0); Immature Granulocytes % 1.9 %; Immature Granulocytes Absolute 0.27 #; Lymphocytes # 1.4 10*3/uL (1.4-4.0); Lymphocytes % 10.3 % (21.3-54.2); Mean Corpuscular HGB Conc 31.1 GM/DL (32-36); Mean Corpuscular Volume 97.5 FL (87-102); Mean Platelet Volume 13.5 FL (9.6-12.0); Neutrophils % 83.1 % (38.7-73.9); Red Blood Count 4.02 MC/CUMM (3.8-5.5); Red Cell Distribution Width 12.6 % (9.3-17.3); White Blood Count 13.9 T/CUMM (4-12)
[2020-12-15 05:57] LABS: Platelet Count 97 T/CUMM (130-400)
[2020-12-15 06:14] LABS: Hypochromasia 1+; Microcytosis 1+; Platelet Estimate Decreased
[2020-12-15] MEDS: INSULIN REGULAR 100 UNIT/ML SUBCUT SCH ×4 (07:57→21:30)
[2020-12-15] MEDS: ASCORBIC ACID 500 MG TABLET PO SCH ×2 (09:04→21:30)
[2020-12-15] MEDS: DONEPEZIL 10 MG TABLET PO SCH (09:04)
[2020-12-15] MEDS: INSULIN GLARGINE 100 UNIT/ML SUBCUT SCH (09:05)
[2020-12-15] MEDS: carvediloL 25 MG TABLET PO SCH ×2 (09:05→21:30)
[2020-12-15] MEDS: OXYBUTYNIN 5 MG TABLET PO SCH (09:05)
[2020-12-15] MEDS: CINACALCET 30 MG TABLET PO SCH (09:06)
[2020-12-15] MEDS: amLODIPine 5 MG TABLET PO SCH (09:06)
[2020-12-15] MEDS: POTASSIUM CHLORIDE 10 MEQ TABLET PO SCH (09:06)
[2020-12-15] MEDS: PANTOPRAZOLE 40 MG TABLET PO SCH (09:07)
[2020-12-15] MEDS: ZINC GLUCONATE 50 MG TABLET PO SCH (09:07)
[2020-12-15] MEDS: MEMANTINE 10 MG TABLET PO SCH ×2 (09:07→21:30)
[2020-12-15] MEDS: ASPIRIN EC 81 MG TABLET PO SCH (09:07)
[2020-12-15] MEDS: VENLAFAXINE XR 75 MG CAPSULE PO SCH (09:07)
[2020-12-15] MEDS: ENOXAPARIN 40 MG/0.4 ML SYRINGE SUBCUT SCH ×2 (09:08→21:30)
[2020-12-15] MEDS: IRON (CARBONYL)/VIT C/B12/FA TABLET PO SCH (09:08)
[2020-12-15] MEDS: CHOLECALCIFEROL 400 UNIT TABLET PO SCH (09:08)
[2020-12-15] MEDS: cefTRIAXone 1,000 MG in SYRINGE 1 EACH IV SCH (09:09)
[2020-12-15] MEDS: AZITHROMYCIN INJ 500 MG in SODIUM CHLORIDE 0.9% 250 ML IV SCH (09:13)
[2020-12-15] MEDS: ATORVASTATIN 10 MG TABLET PO SCH (21:30)
[2020-12-15] MEDS: risperiDONE 0.5 MG TABLET PO SCH (21:30)
[2020-12-15] MEDS: traZODone 50 MG TABLET PO SCH (21:30)
[2020-12-16 06:12] LABS: Basophils % 0.3 % (0.0-0.8); Eosinophils # 0.2 10*3/uL (0.0-0.87); Eosinophils % 1.3 % (0.00-10.9); Hematocrit 38.5 VOL% (35.7-47.0); Hemoglobin 11.9 GM/DL (12.0-16.0); Immature Granulocytes % 2.6 %; Immature Granulocytes Absolute 0.31 #; Lymphocytes # 1.3 10*3/uL (1.4-4.0); Lymphocytes % 10.8 % (21.3-54.2); Mean Corpuscular HGB Conc 30.9 GM/DL (32-36); Mean Corpuscular Volume 98.2 FL (87-102); Mean Platelet Volume 13.2 FL (9.6-12.0); Red Blood Count 3.92 MC/CUMM (3.8-5.5); Red Cell Distribution Width 12.9 % (9.3-17.3); White Blood Count 11.8 T/CUMM (4-12)
[2020-12-16 06:16] LABS: Platelet Count 93 T/CUMM (130-400)
[2020-12-16 06:32] LABS: Bilirubin,Total 0.6 MG/DL (0.2-1.0); Calcium 12.6 MG/DL (8.5-10.1); Hypochromasia 1+; Lymphocytes 5 % (20-55); Microcytosis 1+; Osmolality,Calculated 305.9 MOS/KG (273-304); Platelet Estimate Decreased; Potassium 4.7 MMOL/L (3.5-5.1); Segmented Neutrophils 90 % (50-85); Total Cells Counted 100; Total Protein 6.4 G/DL (6.4-8.3)
[2020-12-16] MEDS: INSULIN REGULAR 100 UNIT/ML SUBCUT SCH ×4 (08:39→22:20)
[2020-12-16] MEDS: INSULIN GLARGINE 100 UNIT/ML SUBCUT SCH (10:05)
[2020-12-16] MEDS: ENOXAPARIN 120 MG/0.8 ML SYRINGE SUBCUT SCH ×2 (10:05→22:20)
[2020-12-16] MEDS: cefTRIAXone 1,000 MG in SYRINGE 1 EACH IV SCH (10:05)
[2020-12-16] MEDS: CINACALCET 30 MG TABLET PO SCH (10:06)
[2020-12-16] MEDS: ZINC GLUCONATE 50 MG TABLET PO SCH (10:06)
[2020-12-16] MEDS: AZITHROMYCIN INJ 500 MG in SODIUM CHLORIDE 0.9% 250 ML IV SCH (10:06)
[2020-12-16] MEDS: CHOLECALCIFEROL 400 UNIT TABLET PO SCH (10:06)
[2020-12-16] MEDS: IRON (CARBONYL)/VIT C/B12/FA TABLET PO SCH (10:07)
[2020-12-16] MEDS: POTASSIUM CHLORIDE 10 MEQ TABLET PO SCH (10:07)
[2020-12-16] MEDS: ASCORBIC ACID 500 MG TABLET PO SCH ×2 (10:07→22:21)
[2020-12-16] MEDS: VENLAFAXINE XR 75 MG CAPSULE PO SCH (10:07)
[2020-12-16] MEDS: ASPIRIN EC 81 MG TABLET PO SCH (10:07)
[2020-12-16] MEDS: DONEPEZIL 10 MG TABLET PO SCH (10:08)
[2020-12-16] MEDS: carvediloL 25 MG TABLET PO SCH ×2 (10:08→22:19)
[2020-12-16] MEDS: OXYBUTYNIN 5 MG TABLET PO SCH (10:08)
[2020-12-16] MEDS: amLODIPine 5 MG TABLET PO SCH (10:08)
[2020-12-16] MEDS: PANTOPRAZOLE 40 MG TABLET PO SCH (10:08)
[2020-12-16] MEDS: MEMANTINE 10 MG TABLET PO SCH ×2 (10:08→22:20)
[2020-12-16 17:05] LABS: ABG Base Excess 3.3 MMOL/L (-2.5-2.5); ABG HCO3 27.8 MMOL/L (20-26); ABG Oxygen Saturation 65.2 % (95-100); ABG PCO2 41.8 MM HG (35-48)
[2020-12-16 17:11] LABS: ABG PO2 35.1 MM HG (80-95)
[2020-12-16] MEDS: traZODone 50 MG TABLET PO SCH (22:19)
[2020-12-16] MEDS: ATORVASTATIN 10 MG TABLET PO SCH (22:20)
[2020-12-16] MEDS: risperiDONE 0.5 MG TABLET PO SCH (22:21)
[2020-12-17 05:41] LABS: Basophils % 0.2 % (0.0-0.8); Eosinophils # 0.1 10*3/uL (0.0-0.87); Eosinophils % 0.7 % (0.00-10.9); Hematocrit 36.6 VOL% (35.7-47.0); Hemoglobin 11.2 GM/DL (12.0-16.0); Immature Granulocytes % 2.3 %; Immature Granulocytes Absolute 0.31 #; Lymphocytes # 1.4 10*3/uL (1.4-4.0); Lymphocytes % 10.5 % (21.3-54.2); Mean Corpuscular HGB Conc 30.6 GM/DL (32-36); Mean Corpuscular Volume 99.2 FL (87-102); Mean Platelet Volume 13.3 FL (9.6-12.0); Monocytes % 4.2 % (1.7-12.7); NRBC # 0.04 10*3/uL; Neutrophils % 82.1 % (38.7-73.9); Platelet Count 109 T/CUMM (130-400); Red Blood Count 3.69 MC/CUMM (3.8-5.5); Red Cell Distribution Width 12.9 % (9.3-17.3); White Blood Count 13.7 T/CUMM (4-12)
[2020-12-17 06:05] LABS: Hypochromasia 1+; Microcytosis 1+
[2020-12-17 06:06] LABS: Platelet Estimate Decreased
[2020-12-17 06:10] LABS: Albumin 1.7 G/DL (3.4-5.0); Calcium 13.2 MG/DL (8.5-10.1); Potassium 4.6 MMOL/L (3.5-5.1); Total Protein 6.4 G/DL (6.4-8.3)
[2020-12-17] MEDS: CHOLECALCIFEROL 400 UNIT TABLET PO SCH (08:27)
[2020-12-17] MEDS: CINACALCET 30 MG TABLET PO SCH (08:27)
[2020-12-17] MEDS: MEMANTINE 10 MG TABLET PO SCH ×2 (08:27→23:50)
[2020-12-17] MEDS: VENLAFAXINE XR 75 MG CAPSULE PO SCH (08:27)
[2020-12-17] MEDS: ENOXAPARIN 120 MG/0.8 ML SYRINGE SUBCUT SCH ×2 (08:28→23:52)
[2020-12-17] MEDS: carvediloL 25 MG TABLET PO SCH ×2 (08:28→23:49)
[2020-12-17] MEDS: PANTOPRAZOLE 40 MG TABLET PO SCH (08:28)
[2020-12-17] MEDS: ASPIRIN EC 81 MG TABLET PO SCH (08:28)
[2020-12-17] MEDS: INSULIN GLARGINE 100 UNIT/ML SUBCUT SCH (08:28)
[2020-12-17] MEDS: amLODIPine 5 MG TABLET PO SCH (08:28)
[2020-12-17] MEDS: POTASSIUM CHLORIDE 10 MEQ TABLET PO SCH (08:28)
[2020-12-17] MEDS: OXYBUTYNIN 5 MG TABLET PO SCH (08:28)
[2020-12-17] MEDS: DONEPEZIL 10 MG TABLET PO SCH (08:28)
[2020-12-17] MEDS: ZINC GLUCONATE 50 MG TABLET PO SCH (08:28)
[2020-12-17] MEDS: IRON (CARBONYL)/VIT C/B12/FA TABLET PO SCH (08:28)
[2020-12-17] MEDS: ASCORBIC ACID 500 MG TABLET PO SCH ×2 (08:28→23:51)
[2020-12-17] MEDS: cefTRIAXone 1,000 MG in SYRINGE 1 EACH IV SCH (08:29)
[2020-12-17] MEDS: AZITHROMYCIN INJ 500 MG in SODIUM CHLORIDE 0.9% 250 ML IV SCH (09:25)
[2020-12-17] MEDS: INSULIN REGULAR 100 UNIT/ML SUBCUT SCH ×4 (09:56→21:30)
[2020-12-17] MEDS ORDERED: DEXTROSE 5% NACL 0.45% 500 ML IV SCH (13:30)
[2020-12-17 13:56] LABS: PTH-Related Peptide < 0.4 pmol/L (< or = 4.2)
[2020-12-17] MEDS: risperiDONE 0.5 MG TABLET PO SCH (23:50)
[2020-12-17] MEDS: traZODone 50 MG TABLET PO SCH (23:50)
[2020-12-17] MEDS: ATORVASTATIN 10 MG TABLET PO SCH (23:50)
[2020-12-18 02:08] VITALS: BP 128/73
[2020-12-18] MEDS ORDERED: NOREPINEPHRINE 4 MG/4 ML VIAL IV ONE (04:58)
[2020-12-18] MEDS ORDERED: AMIODARONE 150 MG/3 ML VIAL IV ONE (04:58)
[2020-12-18] MEDS ORDERED: EPINEPHrine 1 MG/10 ML SYRINGE IV ONE (04:58)
[2020-12-18] MEDS ORDERED: SODIUM BICARBONATE 50 MEQ/50 ML SYRINGE IV ONE (04:58)
[2020-12-18] MEDS ORDERED: ATROPINE 1 MG/10 ML SYRINGE IV ONE (04:58)
[2020-12-18] MEDS ORDERED: DOPamine 800 MG/250 ML PREMIX IV ONE (04:58)
== END 2020-12-18 04:59 | disposition expired | DRG 177 ==
LOC: EDUNIT# → EDBD → N.EDINP 12:01 → N.ED 12:01 → N.2E 18:45 → SUATTDRO 12-10 12:15
PROVIDERS: ADMIT Internal Medicine; ATTEND Internal Medicine